=== PATIENT | male | born 1945 | race Caucasian/White ===

== ENCOUNTER 2017-04-21 06:09 | Inpatient (IN) | payer MEDICARE ==
[~2017-04-21] VITALS: Ht 177.8 cm; Wt 137.9 kg
--- NOTE | ~2017-04-21 | ECH ---
Transthoracic Echocardiography Report (TTE) Demographics Patient Name ARLENE BAHENA Date of Study 04/21/2017 Patient Number [id number] Visit Number [id number] Date of 1945 Room Number 315 Accession Number [id number] Gender Male Age 71 year(s) Referring Calista Chris MD Market Research Specialist Gabriela Denton [facility] Physician Rudi Sales Physician Interpreting Calista Chris MD Dynamite Cartridge Crimper Physician Supervising Ordering Physician Rudi Sales MD/P Nurse Stress Employment Adjudicator Conclusions Summary Technically difficult exam to perform due to body habitus. Estimated images fair. The estimated left ventricular ejection fraction is 60-65%. Mild left ventricular hypertrophy. Diastolic function indeterminate due to patient's arrhythmia. No significant valvular abnormalities. The aortic root appears mildly dilated. The maximum diameter measures 4.15 cm at the sinus of valsalva. Procedure Type of Study TTE procedure:Echo Complete SF. Procedure Date Date: 04/21/2017 Start: 02:25 PM Technical Quality: Fair due to patient immobility. Indications:Elevated Troponin, edema and Pericardial effusion. Appropriate Use Criteria: 9 Height: 70 inches Weight: 313 pounds BSA: 2.52 m Rhythm: Atrial fibrillation HR: 78 bpm BP: 154/74 mmHg M-Mode/2D Measurements LV Diastolic Dimension: 5.58 cm LV Systolic Dimension: 4.2 cm LV Septum Diastolic: 1.29 cm LV PW Diastolic: 1.14 cm AO Root Dimension: 3.53 cm Cardiac Output: 4.14 l/min LA Dimension: 3.96 cm Cardiac Index: 1.64 l/min*m RV Diastolic Dimension: 2.97 cm LA volume index: 19 ml/m LVOT: 2.13 cm LVOT VTI: 14.9 cm RV Base: 3.2 cm LV Stroke volume: 53.07 ml RV Mid: 2.5 cm LV Stroke volume index: 21.06 ml/m RV Length: 7.6 cm TAPSE: 1.7 cm Doppler Measurements AV Peak Velocity: 0.99 m/s MV Peak E-Wave: 1.32 m/s AV Peak Gradient: 3.95 mmHg AV Mean Gradient: 2.05 mmHg LVOT Peak Velocity: 1 m/s AV Area (Continuity):4.54 cm TR Velocity:1.97 m/s Estimated PASP: 20.52 mmHg TR Gradient:15.52 mmHg Estimated RAP:5 mmHg Estimated RVSP: 21 mmHg RA Area: 14.22 cm Findings Left Ventricle The left ventricle is normal in size . Mild left ventricular hypertrophy. Diastolic function indeterminate due to patient's arrhythmia. Right Ventricle Normal right ventricular size and function. Left Atrium Normal left atrial size. Right Atrium Normal right atrial size. Mitral Valve Mild mitral annular calcification. Mild mitral regurgitation by color Doppler. Aortic Valve The aortic valve was not well imaged. Tricuspid Valve Normal appearing tricuspid valve. Mild tricuspid regurgitation by color Doppler. Estimated pulmonary pressures are within normal limits. Pulmonic Valve The pulmonic valve is not well visualized. Pericardial Effusion Small anterior pericardial effusion. Miscellaneous The aortic root appears mildly dilated. The maximum diameter measures 4.15 cm at the sinus of valsalva. Signature
--- NOTE | ~2017-04-21 | CO ---
ADMIT: 04/21/2017 RM/LOC: 315 [facility] MR#: [id number] [address] [address] [place] [address] Consultation SEX: M AGE: 71 : 1945 DATE OF CONSULTATION: 04/21/2017 ATTENDING PHYSICIAN: Hedy Grijalva MD CONSULTING PHYSICIAN: Shun Holden MD HISTORY OF PRESENT ILLNESS: This is a 71-year-old white male, reportedly former heavy alcohol and tobacco user, but quit 5 years; history of obstructive sleep apnea, on CPAP and supplemental O2; history of COPD; and a charted history of coronary artery disease (but, the patient states he has never had an [place], CVA, but uncertain of the patient's capability of recalling all previous history); who presented with decreased level of consciousness, progressively worse over 2 days and worsening shortness of breath. The patient was started on BiPAP, given Narcan x2, nitroglycerin and Cardiology consult following admission. The patient has also had a PICC line placed at time of review. Upon initial evaluation, the patient was sluggish and did open his eyes and respond, stated he understood elements such as IVs and whether he would allow them and knew that he was in the hospital (but was not certain he was in [place]). The patient remained on BiPAP, tidal volumes of 450 on BiPAP 16/8, 40%, sats 97%. ABG still revealed a hypercarbia with pCO2 of 61, pH of 7.27, pO2 of 95. Over time, the patient gradually awakened, able to respond well, changing BiPAP to 12/5 and volumes remain 400, respiratory rate 16, sat 97% on 40%. The patient was able to state he has not have any chest pain, lightheadedness, no history of [place] or CVA, but has had a productive cough for a few days. He has had some discomforts with the BiPAP mask and the Ferrer, but reasonably pain free at this time. PAST SURGICAL HISTORY/ PAST MEDICAL HISTORY: From chart and from patient. No known medical allergies. Surgery/operations: Appendectomy and tonsillectomy. Illnesses: Type 2 diabetes; hypertension; anemia, iron-deficient; glaucoma; dry mouth; BPH; knee pain (lidocaine patch) on the right, note surgery was on the left; Phytoplex powder; aspirin daily for coronary artery disease; senna for constipation; schizoaffective disorder and delusions; O2-dependent COPD. MEDICATIONS: 1. Metformin. 2. Lasix. 3. Losartan. 4. Benztropine. 5. Ciprodex. ADMIT: 04/21/2017 RM/LOC: 315 [facility] MR#: [id number] [address] [place] [phone] [place] [address] Consultation SEX: M AGE: 71 : 1945 6. Ferrous sulfate. 7. Multivitamin. 8. Vitamin B12. 9. Vitamin D3. 10.Travatan. 11.Tamsulosin. 12.Lidocaine. 13.Ketoconazole. 14.Aspirin. 15.Senna. 16.Metamucil, PEG. 17.Topiramate. 18.Paroxetine. 19.Aripiprazole. 20.Donepezil. 21.Acetaminophen. 22.Milk of Mag. FAMILY HISTORY: Noncontributory to current. SOCIAL HISTORY: Resident of [facility]. Alcohol reportedly heavy, quit 5 years. Tobacco, quit 5 years. Worked for the newspaper. Other social history: The patient states he had criminal past, unspecified. PHYSICAL EXAMINATION: GENERAL: Initially, on BiPAP, not significantly awake, but opened eyes and occasionally speak, but subsequently after few hours of evaluation, he is much improved, awake, responsive. VITAL SIGNS: Blood pressure 161/79, pulse is 88, respiratory rate 16 to 19. HEENT: BiPAP initially on, but once removed, the patient does have mild erythema on his face. Nares and throat are clear. NECK: Very large neck. No lymphadenopathy or JVD appreciated. CARDIOVASCULAR: Regular rate and rhythm. LUNGS: Essentially clear to auscultation. Decreased breath sounds in the bases. Slightly prolonged expiratory phase. ABDOMEN: Very large. Nontender. No hepatosplenomegaly. EXTREMITIES: Borderline clubbing. No cyanosis. 1+ edema. NEUROLOGIC: Motor and sensory grossly intact. SKIN: The right leg anteriorly has an erythematous blanching area that is slightly tender and slightly warm (the patient states this is not new). There are significant fungal-appearing lesions over his groin bilaterally. LABORATORY DATA: AB.27, pCO2 of 61, pO2 of 95, on BiPAP 16/8. Sodium is 119, bicarb is 25, creatinine 1.2, potassium 5.6. D-dimer 3.32. CTA, limited evaluation, curvilinear density at the level of pulmonary arteries, likely artifact, nonspecific mediastinal adenopathy. Moderate size pericardial and pleural effusions. Interstitial edema, compatible with CHF. ADMIT: 04/21/2017 RM/LOC: 315 [facility] MR#: [id number] [address] [place] [phone] [place] [address] Consultation SEX: M AGE: 71 : 1945 Atelectatic changes due to pleural effusions. Somewhat nodular liver. Procalcitonin 0.52. WBC is 14.7, hemoglobin 9.4, platelets 405. Lactic acid 1.2. Protime/INR 1.06. UA; specific gravity 1.16, otherwise negative except hyaline casts. ASSESSMENT AND RECOMMENDATION: 1. Reduced level of consciousness X2 days followed by respiratory failure. Uncertain etiology, but possibly right left heart failure. The patient's CT of the chest did not demonstrate any definite pulmonary embolism, but does demonstrate a moderate-sized pericardial and pleural effusion along with interstitial edema. They are at least compatible with congestive heart failure. The patient's proBNP is only 886 and likely correlates to his creatinine of 1.2. The patient has a notable sodium of 119 of uncertain etiology. We will order serum sodium and osmol as per Dr. Pat's recommendation and we will consider other therapeutics, e.g. hypertonic saline. The patient does not have a definite pulmonary embolism, but does have erythema of the right lower extremity. He will be receiving antibiotics, but we will also check for deep venous thrombosis. 2. Hyponatremia. As above. 3. Atrial fibrillation. The patient has been started on heparin drip per Cardiology. 4. Rule out deep venous thrombosis. As above, the patient will have duplex scan. Note that the D-dimer was 3.32. The patient's CTA was somewhat limited for complete evaluation, so we will continue with heparin and check duplex. 5. Renal insufficiency/hyponatremia. Dr. Pat will be seeing the patient and making recommendations. 6. Schizoaffective disorder/dementia. The patient is able to speak and understand and able to state where he is at and converse satisfactorily. 7. Code status. The patient states he does not wish to have CPR or ventilator, but specifically that he would "want to go naturally" should that be required and not on machines. Given his overall prognosis, I concur. 8. Healthcare maintenance. The patient has been started on heparin and we will also start Protonix. He does have a productive sounding cough and ADMIT: 04/21/2017 RM/LOC: 315 [facility] MR#: [id number] [address] [place] [phone] [place] [address] Consultation SEX: M AGE: 71 : 1945 reflux, could certainly be contributing. 9. Cellulitis/?sepsis. The patient has a normal lactate and WBC is 14.7. The patient has been started on triple antibiotics. His only obvious source of infection is on his right lower extremity, appears significant cellulitis. He also does have significant fungal type infections in his skin folds over his groin and ?mildly on his face. 10.Mild hyperkalemia. Per Renal. Overall, the patient is modestly improving from his acute respiratory failure. This has been ongoing treatment. TOTAL CRITICAL CARE TIME: 1-1/2 hours. Shun Holden MD/ deep JOB #: [id number] CC: Hedy Grijalva MD, Attending Physician Hedy Grijalva MD, Family Physician
--- NOTE | 2017-04-21 20:13 | ER ---
ADMIT: 04/21/2017 RM/LOC: 315 [facility] MR#: [id number] [id number] [place], [place] [address] [place] [address] Emergency Room Report SEX: M AGE: 71 : 1945 DATE: 04/21/2017 CHIEF COMPLAINT: Altered level of consciousness. HISTORY OF PRESENT ILLNESS: The patient is a 71-year-old male, transferred from [facility] with altered level of consciousness and respiratory distress. Paramedics placed on CPAP, immediately transferred to [facility] on arrival. No [id number] report at the time of transfer was given. Immediate Accu-Chek on arrival 160. Two amps of Narcan with no improvement. Review of record showed that he has chronic pain, type 2 diabetes, hypertension, obstructive sleep apnea, wearing CPAP, and dementia with schizoaffective personality. Only records we have here are for epidural steroid injections. PAST MEDICAL HISTORY: Allergies: None. Medications: Please see [facility] MAR. Illnesses: Type 2 diabetes, hypertension, COPD, dementia, obstructive sleep apnea with CPAP, chronic pain, constipation, BPH, schizoaffective disorder. Operations: Epidural steroid injections. SOCIAL HISTORY: [facility] resident. REVIEW OF SYSTEMS: Unavailable due to altered level of consciousness. PHYSICAL EXAMINATION: VITAL SIGNS: Temp 98.7; pulse 137, irregular; respirations 20, BiPAP; BP 156/91; SaO2 of 92%, 8 L on BiPAP. GENERAL: Obtunded. Obese. HEENT: Normocephalic. No evidence of epistaxis, rhinorrhea, or otorrhea. NECK: Supple without lymphadenopathy. CHEST: Breath sounds equal, diminished with expiratory crackles. HEART: Tachycardic, irregular without murmur or gallop. There is Jobst stockings noted. ABDOMEN: Obese. Nontender. Bowel sounds hypoactive. EXTREMITIES: Lower extremity Jobst stockings noted. NEURO: He will respond slowly to painful stimuli and occasionally to verbal stimuli by opening his eyes. No lateralizing or posturing noted. MEDICAL DECISION MAKING: The patient is in extreme respiratory distress on arrival, placed on BiPAP. Blood gases on 8 L; pH of 7.24, pCO2 of 57, pO2 of 63. EKG shows atrial fib with rapid ventricular response. [facility] prior [facility] head shows no acute findings except fluid in the mastoid air cells. Chest x-ray shows pulmonary edema. WBC 14.7, hemoglobin 9.4. CRP 9.02. Sodium 119, potassium 5.6, normal creatinine. BNP 886. Troponin is less than 0.015. Blood cultures pending. The patient was placed on Cardizem bolus and drip, given nitro initially for blood pressure, Lasix 40 mg IV push. Discussed findings with Dr. Grijalva who agreed and gave orders to nursing staff. Due to the patient's ADMIT: 04/21/2017 RM/LOC: 315 [facility] MR#: [id number] [address] [place] [id number] [place] [address] Emergency Room Report SEX: M AGE: 71 : 1945 presentation, findings, and intervention, 60 minutes of critical care is warranted. DIAGNOSES: 1. Atrial fibrillation with rapid ventricular response. 2. Pulmonary edema. 3. Chronic pain syndrome. RECOMMENDATION: Admit Inpatient ICU for Dr. Grijalva. ADMISSION AND DISCHARGE CONDITION: Critical. The patient is a full code. Sean Simms MD/ deep JOB #: [id number] CC: Hedy Grijalva MD, Attending Physician Hedy Grijalva MD, Family Physician Hedy Grijalva MD . [facility]
--- NOTE | 2017-04-23 10:18 | CO ---
ADMIT: 04/21/2017 RM/LOC: 315 [facility] MR#: [id number] [address] [address] [place]RLENE BAHENA [place], [place] [address] Consultation SEX: M AGE: 71 : 1945 DATE OF CONSULTATION: 04/21/2017 ATTENDING PHYSICIAN: Hedy Grijalva MD CONSULTING PHYSICIAN: Margy Pat MD REASON FOR CONSULTATION: Hyponatremia. HISTORY OF PRESENT ILLNESS: The patient is a 71-year-old male, who is a resident of the [facility]. He presented to the emergency room with shortness of breath. Reportedly, there is a 2-day history of progressively declining consciousness and eventually shortness of breath that necessitated an evaluation in the emergency room. He was noted to have pulmonary edema along with pericardial and small pleural effusions on a CTA that was done in the ER. He was evaluated by Cardiology and has been given diuretics. Incidentally, his sodium is noted to be 119. Previous serum sodiums in our record have been normal. He is a poor historian and has a history of schizoaffective disorders. He is also noted to be on medications for dementia. He is unable to give me a clear history. He has a cough. He denies any specific complaints. A Ferrer catheter has been placed and he has had over 50 mL/h of urine output over the last couple of outs. REVIEW OF SYSTEMS: A complete review of systems is negative in detail except as mentioned in history of present illness above. PAST MEDICAL HISTORY: 1. Hypertension. 2. Type 2 diabetes mellitus. 3. Schizoaffective disorders. 4. Morbid obesity. 5. Congestive heart failure. 6. COPD. 7. Tobacco abuse. ALLERGIES: NO KNOWN DRUG ALLERGIES. MEDICATIONS: Reviewed in the chart. He is noted to be on: 1. Paroxetine. 2. Donepezil. 3. Aripiprazole. He is on furosemide as an outpatient as well as losartan. He takes an iron supplement as well. He is on metformin for diabetes. SOCIAL HISTORY: He is resident of [facility]. Previous history of heavy alcohol as well as tobacco use. He reports that he has a son who lives in [facility]. FAMILY HISTORY: Denies any family history of chronic kidney disease or renal replacement therapy. ADMIT: 04/21/2017 RM/LOC: 315 [facility] MR#: [id number] [address] [address] [address] [place] [id number] Consultation SEX: M AGE: 71 : 1945 PHYSICAL EXAMINATION: VITAL SIGNS: Temperature afebrile, pulse 114, blood pressure 156/91. GENERAL: He is in bed, and he has a tremor in his upper extremities. HEENT: Extraocular movements are intact. Oral mucosa is moist. CHEST: Clear to auscultation. CVS: Irregular. S1 and S2 heard. No rubs, gallops. ABDOMEN: Soft, obese. EXTREMITIES: 1 to 2+ bilateral lower extremity edema. NEUROLOGIC: He is alert, but not oriented. He is able to move all his extremities. He has a tremor in his upper extremities. MUSCULOSKELETAL: He has a scar on his left knee suggestive of knee surgery previously. He is able to move all his extremities. LABORATORY DATA: Reviewed. BMP with sodium 119, potassium 5.6, CO2 of 25, creatinine 1.2, hemoglobin 9.4, calcium 8.5, phosphorus 4.5. ABG with pH of 7.267, pCO2 was 61.3. Urinalysis without any hematuria, proteinuria, or leukocyte esterase. He had hyaline casts in his urine. His N-Terminal proBNP was only 886. His CTA showed pericardial as well as pleural effusions. His chest x-ray had interstitial edema. ASSESSMENT AND PLAN: Hyponatremia-this is presumed chronic in duration. I will check a serum osmolality as well as repeat his serum sodium considering that he has been diuresing over the last couple of hours. I will also check urine studies to determine ADH activity. His urine studies may be confounded by his recent diuretic use. I will put him on fluid restriction and stop his SSRI. Monitor his serum sodium with these interventions. If his serum sodium does not improve, we may end up having to use hypertonic saline. I will discuss this plan with Cardiology. Thank you for this consultation. Please do not hesitate to contact with any questions. Margy Pat MD/ deep JOB #: [id number] CC: Hedy Grijalva MD, Attending Physician Hedy Grijalva MD, Family Physician
--- NOTE | 2017-04-25 13:08 | HP ---
ADMIT: 04/21/2017 RM/LOC: 315 [facility] MR#: [id number] [address] [place], [place] [address] ARLENE PENA [place], [place] [id number] History and Physical SEX: M AGE: 71 : 1945 DATE OF SERVICE: CHIEF COMPLAINT: Shortness of breath and altered mental status. HISTORY OF PRESENT ILLNESS: Mr. Pena is a 71-year-old male with a reported history of 2 days of shortness of breath. At this time, the patient is unable to provide any additional history due to altered mental status. Of note, [facility] and lives at the [facility]. He is therefore admitted as a [facility] patient and no previous medical records are available at this time. PAST MEDICAL HISTORY: Just in review of medications; 1. Unknown psychiatric diagnosis. 2. Diabetes, on metformin. 3. Morbid obesity. 4. Obstructive sleep apnea, requiring positive-pressure at night. 5. Hypertension. MEDICATIONS: Please see electronic record for details. ALLERGIES: NO KNOWN MEDICAL ALLERGIES. SOCIAL HISTORY: The patient lives at the [facility]. His next of kin was contacted, but unable to be reached. Unknown smoking history. Unknown alcohol use history. FAMILY HISTORY: Unobtainable. REVIEW OF SYSTEMS: Unobtainable. PHYSICAL EXAMINATION: VITAL SIGNS: The patient is afebrile. Blood pressure initially was 190, systolic; heart rate was 130 initially, but now down to 90. Please see electronic record for full current vitals. GENERAL: The patient is non-arousable. He is obese. He is in no acute distress, however. HEENT: The patient is obese. He has a adrian on his face, but BiPAP appears to be sitting well. HEART: Distant heart sounds and tachycardic. Unable to appreciate any murmurs. LUNGS: Diminished throughout. BiPAP sounds appreciated. No accessory muscle use. ABDOMEN: Morbidly obese. He has a midline abdominal wall hernia. This appears nontender. No erythema. Normal bowel sounds. NEUROLOGIC: Unobtainable secondary to altered mental status. SKIN: The patient has a localized, approximately 10 cm area of erythema to the right lower extremity. This is not warm to touch. It is well demarcated. He has 1+ edema surrounding this area. He also has significant erythema to the panniculus as well as the inguinal and sacral regions. There is a ADMIT: 04/21/2017 RM/LOC: 315 [facility] MR#: [id number] [address] [address] [place] [address] History and Physical SEX: M AGE: 71 : 1945 pressure ulcer to the buttock region as well. LABORATORY DATA: Please see electronic record for details. IMAGING: CTA was performed, showed no definitive pulmonary embolism. Moderate effusions with edema. EKG; atrial fibrillation with tachycardia, heart rate in the 130s. ASSESSMENT AND PLAN: 1. Hypoxic and hypercapnic respiratory failure. Continue BiPAP. Consult Critical Care. 2. Volume overload. He has received Lasix in the Emergency Department. 3. Hyponatremia. 4. Cellulitis. 5. Probable sepsis. 6. Atrial fibrillation with rapid ventricular response. DISPOSITION: The patient has been admitted to the Critical Care Unit. I spent 40 minutes in care of this patient until Critical Care arrived and was able to assume care. I also attempted to contact the patient's POA and did leave a phone message, but no contact was able to be made. We will continue to follow closely. Hedy Grijalva MD/ deep JOB #: [id number] CC: Hedy Grijalva MD, Attending Physician Hedy Grijalva MD, Family Physician
[2017-04-27] MEDS ORDERED: GLUCOPHAGE-DPS500 MG PO (19:27)
[2017-04-27] MEDS ORDERED: COZAAR DPS50 MG PO (19:27)
[2017-04-27] MEDS ORDERED: LASIX DPS80 MG PO (19:27)
[2017-04-27] MEDS ORDERED: COGENTIN DPS0.5 MG PO (19:28)
[2017-04-27] MEDS ORDERED: THERAPEUTIC MUL1 TAB PO (19:29)
[2017-04-27] MEDS ORDERED: VITAMIN B-121000 MCG PO (19:29)
[2017-04-27] MEDS ORDERED: CIPRODEX OTIC7.5 ML AS (19:29)
[2017-04-27] MEDS ORDERED: FEOSOL-DPS325 MG PO (19:29)
[2017-04-27] MEDS ORDERED: TRAVATAN Z2.5 ML OU (19:30)
[2017-04-27] MEDS ORDERED: VITAMIN D-32000 UNI1 PO (19:30)
[2017-04-27] MEDS ORDERED: FLOMAX DPS0.4 MG PO (19:30)
[2017-04-27] MEDS ORDERED: NIZORAL SHAMPO120 ML TP (19:32)
[2017-04-27] MEDS ORDERED: LIDOCAINE PATCH 5% TD (19:32)
[2017-04-27] MEDS ORDERED: ASPIRIN EC81 MG PO (19:32)
[2017-04-27] MEDS ORDERED: SENNA S TABLET1 EACH PO (19:33)
[2017-04-27] MEDS ORDERED: MIRALAX PACKET17 GM PO (19:33)
[2017-04-27] MEDS ORDERED: METAMUCIL PACK3.4 GM PO (19:33)
[2017-04-27] MEDS ORDERED: ARICEPT10 MG PO (19:34)
[2017-04-27] MEDS ORDERED: ABILIFY15 MG PO (19:34)
[2017-04-27] MEDS ORDERED: TOPAMAX DPS25 MG PO (19:34)
[2017-04-27] MEDS ORDERED: PAXIL40 MG PO (19:34)
[2017-04-27] MEDS ORDERED: MILK OF MAGNESI10 ML PO (19:35)
[2017-04-27] MEDS ORDERED: CARDIZEM CD DP120 MG PO (19:35)
[2017-04-27] MEDS ORDERED: TYLENOL DPS325 MG PO (19:35)
[2017-04-27] MEDS ORDERED: XARELTO15 MG PO (19:36)
[2017-04-27] MEDS ORDERED: DUONEB DPS3 ML IH (19:36)
[2017-04-27] MEDS ORDERED: COLACE-DPS100 MG PO (19:37)
--- NOTE | 2017-05-06 10:26 | CO ---
ADMIT: 04/21/2017 RM/LOC: [address] [facility] MR#: [id number] [id number] [place], [place] [address] [place] [address] Consultation SEX: M AGE: 71 : 1945 DATE OF CONSULTATION: 04/21/2017 ATTENDING PHYSICIAN: Hedy Grijalva MD CONSULTING PHYSICIAN: Ulices Grigsby MD REASON FOR CONSULTATION: New onset of AFib with RVR. HISTORY OF PRESENT ILLNESS: The patient is a pleasant 71-year-old, male, with history of coronary artery disease, reported through ICD 10 codes on his [facility]. I do not have any more information than that. He is here with decreased LOC and increased shortness of breath at the [facility]. He was admitted to the emergency room and was found to be in respiratory failure, was placed on BiPAP. He has questionable sepsis and was found to be in AFib with RVR. He also seems to have pericardial effusion along with pleural effusions and quite a bit of edema. He has no mention of atrial fibrillation in his past records. PAST MEDICAL HISTORY: Hypertension, diabetes, obstructive sleep apnea, coronary artery disease, morbid obesity, schizophrenia. FAMILY HISTORY: Noncontributory. SOCIAL HISTORY: He lives in the [facility], that is all I am really able to get, this patient is currently on BiPAP, not able to answer many questions. REVIEW OF SYSTEMS: Unable to obtain as the patient is on BiPAP. MEDICATIONS: Medications that he is currently getting here: 1. Right now, he is getting Zosyn. 2. He is scheduled to get vancomycin. 3. He is also on a Cardizem drip at 5 mg/hour. ALLERGIES: UNKNOWN. PHYSICAL EXAMINATION: VITAL SIGNS: Per Dr. Grigsby, blood pressure 136/89, pulse 66, respirations 24, temp 98.5, O2 saturation 94%. GENERAL: Minimally responsive. EYES: Sclerae clear. No xanthelasmas. ENT: Oral mucosa is pink and moist. Positive JVD. CHEST: Coarse breath sounds bilaterally. HEART: Irregular heart rate. 2+ edema bilaterally. ABDOMEN: Soft and nontender. MUSCULOSKELETAL: Unable to assess. EXTREMITIES: Peripheral pulses palpable. No clubbing, cyanosis or edema. PSYCHIATRIC: Alert and oriented. Mood and affect are appropriate. NEURO: Unable to assess. SKIN: Right leg, a band of cellulitis. ADMIT: 04/21/2017 RM/LOC: [address] [facility] MR#: [id number] [id number] [place] [address] Consultation SEX: M AGE: 71 : 1945 DIAGNOSTICS: EKG shows atrial fibrillation with rapid ventricular response. Ventricular rate of 110. CTA of chest shows somewhat limited evaluation for PE, nonspecific mediastinal adenopathy. Moderate-sized pericardial and pleural effusions. Interstitial edema. Findings compatible with congestive heart failure. Atelectatic changes, related to pleural effusions. Nodular appearance of the liver. Procalcitonin 0.52. Chest x-ray, congestive heart failure. Blood cultures are pending. INR is 1.06. Sodium of 119, potassium 5.6, chloride of 85, carbon dioxide 25, BUN of 33, glucose 137, creatinine 1.2, Mag of 2.5. AST and ALT are normal. Cardiac enzymes; CK 132, MB of 9.4, troponin of less than 0.015. ProBNP of 886. CRP of 9.02. White blood count of 14.7, red blood count 3.61, hemoglobin 9.4, hematocrit 29.1, with a platelet count of 405. Head CT, moderately brain volume loss and nonspecific white matter change, bilateral mastoid effusions, left middle ear fluid. Lactic acid 1.2. ASSESSMENT: Per Dr. Grigsby: 1. Acute heart failure, undetermined etiology. 2. Altered mental status. 3. Obstructive sleep apnea. 4. Respiratory acidosis. 5. Atrial fibrillation with rapid ventricular response. 6. Hypertension. PLAN: Per Dr. Grigsby, I do not feel that the patient is septic. He is clearly volume overloaded. I would discontinue his IV fluid and continue with his Cardizem for rate control of his atrial fibrillation. We will start him on diuresis with Lasix 40 mg IV b.i.d., monitor his response to this, and the BiPAP as well as antibiotics. Echocardiogram has already been ordered to assess his LV function and possible pericardial effusion on CT scan. I would recommend anticoagulation with heparin because of his atrial fibrillation and risk for CVA. We will continue to monitor symptoms and diagnostics, amend our plan accordingly. Thank you for allowing us to participate in the care of this patient. JEREMIAH Arthur / Wilbur. Aries Grigsby MD / deep JOB #: [id number] CC: Hedy Grijalva MD, Attending Physician Hedy Grijalva MD, Family Physician
== END 2017-04-25 14:30 | DRG 189 ==
LOC: ER 06:09 → 3ICU 07:17 → 4PCU 04-23 20:11
PROVIDERS: ADMIT Family Medicine
PROC: 02HV33Z Insertion of Infusion Device into Superior Vena Cava, Percutaneous Approach (ICD-10-PCS; principal; 2017-04-21)
DX: J96.01 Acute respiratory failure with hypoxia (principal); I26.99 Other pulmonary embolism without acute cor pulmonale; G93.41 Metabolic encephalopathy; L89.309 Pressure ulcer of unspecified buttock, unspecified stage; I50.33 Acute on chronic diastolic (congestive) heart failure; I82.411 Acute embolism and thrombosis of right femoral vein; E87.2 Acidosis; I11.0 Hypertensive heart disease with heart failure; F03.90 Unspecified dementia, unspecified severity, without behavioral disturbance, psychotic disturbance, mood disturbance, and anxiety; L03.115 Cellulitis of right lower limb; E87.1 Hypo-osmolality and hyponatremia; I82.442 Acute embolism and thrombosis of left tibial vein; I82.441 Acute embolism and thrombosis of right tibial vein; Z68.41 Body mass index [BMI] 40.0-44.9, adult; J96.92 Respiratory failure, unspecified with hypercapnia; N28.9 Disorder of kidney and ureter, unspecified; E87.6 Hypokalemia; D64.9 Anemia, unspecified; I25.10 Atherosclerotic heart disease of native coronary artery without angina pectoris; I48.91 Unspecified atrial fibrillation; E11.9 Type 2 diabetes mellitus without complications; G47.33 Obstructive sleep apnea (adult) (pediatric); F25.9 Schizoaffective disorder, unspecified; J44.9 Chronic obstructive pulmonary disease, unspecified; K59.00 Constipation, unspecified; N40.0 Benign prostatic hyperplasia without lower urinary tract symptoms; G89.4 Chronic pain syndrome; E66.01 Morbid (severe) obesity due to excess calories; K46.9 Unspecified abdominal hernia without obstruction or gangrene; Z79.84 Long term (current) use of oral hypoglycemic drugs; Z66 Do not resuscitate